=== PATIENT | female | born 2000 | race Caucasian/White ===

== ENCOUNTER 2019-09-28 10:31 | Outpatient (CLI) | payer OTHER, SELFPAY ==
--- NOTE | 2019-10-01 12:19 | WPDHOLTEREM ---
Holter/Event Monitor Holter/Event Monitor Date of procedure: 09/28/19 Procedure Type: 24 hour holter monitor Indications: Bradycardia Conclusion: 1. 24 hour holter monitor on 09/28/19. 2. Underlying rhythm is sinus rhythm with sinus arrhythmia. HR range 31-174 bpm; average HR 56 bpm. 3. There are 154 premature supraventricular complexes and 18 supraventricular couplets. No supraventricular tachycardia. 4. There are 11 premature ventricular complexes. No ventricular tachycardia. 5. No sinoatrial or atrioventricular blocks. No significant pauses greater than 2 seconds. 6. No symptoms available for correlation.
== END 2019-09-28 10:32 | disposition home or self-care (01) ==
LOC: ANHCARD 10:33
PROVIDERS: PCP Family Medicine; Visit Provider Family Medicine
DX: I07.1 Rheumatic tricuspid insufficiency (principal); R00.1 Bradycardia, unspecified; R01.1 Cardiac murmur, unspecified
CPT/HCPCS: 93225; 93226

== ENCOUNTER 2020-08-24 15:34 | Outpatient (CLI) | payer OTHER, SELFPAY ==
--- NOTE | ~2020-08-24 | US_ITS ---
EXAMINATION: US breast RT limited HISTORY: Palpable lump of the upper outer quadrant of the right breast TECHNIQUE: Limited right breast ultrasound is performed. FINDINGS: There is a benign-appearing 8 mm x 3 mm lymph node in the upper outer quadrant of the right breast the 10:00 location corresponding to the palpable abnormality of concern. No suspicious cystic or solid mass is identified. IMPRESSION: Intramammary lymph node with benign morphology corresponding to the palpable abnormality of concern. BI-RADS Category 2: Benign finding(s). Reviewed, dictated and finalized at location A. IMPRESSION: Intramammary lymph node with benign morphology corresponding to the palpable ab normality of concern. BI-RADS Category 2: Benign finding(s).
== END 2020-08-24 15:35 | disposition home or self-care (01) ==
PROVIDERS: PCP Family Medicine; Visit Provider Obstetrics & Gynecology
DX: N63.11 Unspecified lump in the right breast, upper outer quadrant (principal)
CPT/HCPCS: 76642